=== PATIENT | female | born 1980 | race American Indian/Alaskan Native ===

== ENCOUNTER 2017-03-04 18:59 | Emergency (ER) | payer OTHER ==
[2017-03-04 19:05] VITALS: BP 132/78; PULSE 79; RESP 18; TEMP 98.1; O2SAT 100
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
[2017-03-04] MEDS ORDERED: cefTRIAXone (Rocephin) 250 mg Inj IM STA (22:53)
[2017-03-04] MEDS ORDERED: Emtricitabine-Tenofovir 200 mg-300 mg Tab PO STA (22:53)
[2017-03-04] MEDS ORDERED: Emtricitabine-Tenofovir 200 mg-300 mg Tab PO NR (23:00)
[2017-03-04 23:22] LABS: CHLORIDE 102 mmol/L (98-107); POTASSIUM 4.3 mmol/L (3.6-5.2); SODIUM 138 mmol/L (132-148)
[2017-03-04 23:25] LABS: ALB/GLOB RATIO 1.2 (1.0-2.1); ALKALINE PHOSPHATASE 46 U/L (38-126); ALT/SGPT 22 U/L (9-52); AST/SGOT 35 U/L (14-36); BILIRUBIN,TOTAL 0.6 mg/dL (0.2-1.3); BLOOD UREA NITROGEN 13 mg/dL (7-17); CALCIUM 8.9 mg/dl (8.6-10.4); CARBON DIOXIDE 26 mmol/L (22-30); GFR AFRICAN-AMERICAN > 60; GLUCOSE,RANDOM 86 mg/dL (65-105); TOTAL PROTEIN 7.6 g/dL (6.3-8.3)
== END 2017-03-04 23:56 | disposition home or self-care (01) ==
LOC: C.ER 18:59
DX: Z04.41 Encounter for examination and observation following alleged adult rape (principal)
CPT/HCPCS: 80053; 86703; 96372; 99285; J0696